=== PATIENT | male | born 1970 | race Caucasian/White ===

== ENCOUNTER 2018-08-19 10:26 | Emergency (ER) | payer BC, SELFPAY ==
[2018-08-19 10:26] VITALS: PULSE 94; RESP 16; TEMP 36.3; O2SAT 98; BMI 33.3
[2018-08-19 10:36] VITALS: BP 204/123
--- NOTE | 2018-08-19 10:36 | CT_ITS ---
STUDY: CT ABDOMEN AND PELVIS WITHOUT CONTRAST REASON FOR EXAM: Male, 48 years old. Right flank pain RADIATION DOSAGE (If Supplied By Facility): CTDIvol = ( 21.57 ) mGy, DLP = ( 1131.52 ) mGycm TECHNIQUE: Transaxial images were obtained from the dome of the diaphragm to the symphysis pubis without oral contrast, and without intravenous contrast. Sagittal and coronal images were reconstructed. Individualized dose optimization techniques were used for this CT. COMPARISON: None. FINDINGS: The lung bases are clear. The liver is normal. No dilated intrahepatic biliary radicles. The gallbladder is normal with no calcifications within it. There is no pericholecystic fluid collection or streakiness The spleen is normal. The pancreas is normal. Both adrenals are normal. There is a 2.8 mm obstructing calculus in the right ureterovesical junction with subsequent mild right-sided hydroureteronephrosis. The left kidney is normal The stomach is normal. There is no bowel distention, acute appendicitis or diverticulitis. No constricting lesions are seen in large bowel. Previous appendectomy The abdominal wall is intact with no hernias. There is no ascites or any free intraperitoneal air. No indication of epiploic appendagitis The vascular structures in the retroperitoneum are normal. There is no retrocrural, retroperitoneal or mesenteric adenopathy. The bones and joints are normal. The urinary bladder is normal. The prostate is normal--. There is no inguinal or pelvic adenopathy. There is no inguinal hernia. . . CT/Abdomen/Pelvis without Cont IMPRESSION: A right-sided hydroureteronephrosis secondary to an obstructing 2.8 mm calculus in the right ureterovesical junction. Electronically Signed: Jake Cheatham MD at 12:18 EDT Tel , Service support ,
--- NOTE | 2018-08-19 10:38 | ED.VISSUMM ---
- ER Visit Summary Date of Service: 08/19/18 Chief Complaint: [Right flank pain] History of Present Illness: The patient is a 48 M [presents the emergency department with right-sided flank pain that started about an hour and a half ago. Patient states that initially started with some burning with urination this morning and thought he might be getting a urinary tract infection. He subsequently developed right-sided flank pain. Patient states that he is passed a kidney stone before and it feels like he may be try to pass another kidney stone. He has had diaphoresis. He denies any nausea or vomiting. He denies any fevers. Patient went to urgent care and was referred to the emergency department.] Physical Examination: [HEENT-PERRLA, EOMI. Cranial nerves II through XII grossly intact. TMs clear. Mucous membranes moist. No adenopathy. Cardiovascular-regular rate and rhythm without murmur or ectopy Lungs-clear to auscultation, chest wall stable without crepitus or subcu emphysema Abdomen-normoactive bowel sounds, soft, nontender, no rebound or rigidity, no peritoneal signs. Patient does have CVA tenderness on the right. Extremities-intact ?4, normal range of motion, normal pulses, atraumatic] Test Results: [CBC with liver pain was normal. Chemistries were unremarkable. Urinalysis showed 0-[address] flank my interpretation shows a 2 mm stone at the right UVJ with mild hydroureter and hydronephrosis. Official report from radiology pending.] Emergency Department Course and Treatment: [Patient was medicated with Toradol as well as morphine and Zofran and had almost complete resolution of his pain.] Treatment Plan: [He will be given urine strainers and a prescription for Naprosyn and [place] for pain. Patient will be given referral to urology for follow-up] Disposition: [Discharged home in stable condition] Impression: [Right-sided kidney stone with colic] This note was generated with aiHit dictation software. It may contain incorrect words, spelling, and punctuation that were not noted in review of the chart prior to signing ED Disposition - Plan for ED Patient: Referrals: Alvarado Wolf MD [NON-STAFF] -
[2018-08-19 10:51] LABS: Absolute Lymphocyte Count 2.51 X10^3/ul (0.83-4.51); Basophil# 0.04 X10^3/uL; Basophil% 0.5 % (0-1); Eosinophil# 0.19 X10^3/uL; Eosinophils% 2.3 % (0-5); Hematocrit 45.1 % (40-54); Hemoglobin 15.4 g/dl (13.0-16.5); Lymphocyte # 2.51 X10^3/ul (4.0); Lymphocyte % 30.5 % (19-41); Mean Corp Hgb Conc 34.1 g/gl (32-36); Mean Corpuscular Hgb 29.2 pg (27.0-32.0); Mean Corpuscular Volume 85.6 fL (80-94); Monocyte# 0.52 X10^3/uL; Monocyte% 6.3 % (0-10); Neutrophil # 4.95 X10^3/uL (2.7-7.7); Neutrophil % 60.3 % (47-70); Platelet Count 256 K/mm3 (150-450); RBC Distribution Width CV 12.6 % (11.6-14.6); RBC Distribution Width SD 38.8 fl (35.1-43.9); Red Blood Count 5.27 M/mm3 (4.6-6.2); White Blood Count 8.2 K/mm3 (4.4-11.0)
[2018-08-19 10:53] LABS: POSITIVE COUNT NO; POSITIVE DIFFERENTIAL NO; POSITIVE MORPHOLOGY NO
[2018-08-19] MEDS: 0.9% Normal Saline 1,000 ML 125 ML IV (10:54)
[2018-08-19] MEDS: Morphine 4 MG/ML Syringe IV (10:55)
[2018-08-19] MEDS: Ondansetron 4 MG/2 ML Vial IV (10:55)
[2018-08-19] MEDS: Ketorolac 30 MG/ML Syringe IV (10:55)
[2018-08-19 10:56] LABS: Squamous Epithelial Cells - UA 0 SEEN /hpf (0-5); White Blood Cells 0 SEEN /hpf (0-5)
[2018-08-19 10:58] LABS: Color, Urine Yellow (Yellow); Glucose, Dipstick Normal (Normal); Ketone-Dipstick Negative (Negative); Leukocyte Esterase-Dipstick Negative /ul (Negative); Nitrite-Dipstick Negative (Negative); Occult Blood-Urine 25 /ul (Negative); Protein-Dipstick 15 mg/dl (Negative); Urine Bilirubin Dipstick Negative (Negative); Urine Clarity Sl. Cloudy (Clear); Urine Urobilinogen Normal (Normal)
[2018-08-19 11:06] LABS: Anion Gap 8 (5-15); BUN 19 mg/dL (7-18); BUN/Creat Ratio 16.1 RATIO (10-20); Calcium,Total 9.3 mg/dL (8.5-10.1); Chloride 108 mmol/L (98-107); Creatinine, Serum 1.18 mg/dL (0.70-1.30); EST Glomerular Filtration Rate 70 mL/min (>60); Est Glom Filt Rate - Afr Amer 85 mL/min (>60); Estimated Creatinine Clearance 89.01 ml/min; Glucose 121 mg/dL (74-106); Potassium 3.8 mmol/L (3.5-5.1); Sodium Level 141 mmol/L (136-145)
[2018-08-19 11:07] LABS: Red Blood Cells-Urine 0-5 SEEN /hpf (0-5)
[2018-08-19 11:08] LABS: Bacteria RARE /hpf (None Seen); Mucous, Urine RARE /hpf (<or=2+)
--- NOTE | 2018-08-19 12:10 | ED.DEP ---
ED Disposition - Plan for ED Patient: Instructions: ED Stone Renal W Colic Prescriptions: Hydrocodone Bitart/Apap 5-325 [[place] 5MG-325MG] 1 tab PO Q4H PRN PRN 2 Days #10 tab PRN Reason: Pain Naproxen [Naprosyn] 500 mg PO BID PRN #20 tab Referrals: Alvarado Wolf MD [NON-STAFF] - Vinnie Gross MD [STAFF PHYSICIAN] - 5-7 Days
[2018-08-19 12:33] VITALS: BP 147/84; PULSE 74; RESP 16; O2SAT 98
== END 2018-08-19 12:34 | disposition home or self-care (01) ==
LOC: ED 10:54
PROVIDERS: Emergency Provider Emergency Medicine
DX: N13.2 Hydronephrosis with renal and ureteral calculous obstruction (principal); I10 Essential (primary) hypertension; Z72.0 Tobacco use; Z87.442 Personal history of urinary calculi
CPT/HCPCS: 74176; 80048; 81001; 85025; 96361; 96374; 96375; 99283; J7030; J2405

== ENCOUNTER 2019-08-07 04:55 | Emergency (ER) | payer BC, SELFPAY ==
[2019-08-07 04:57] VITALS: BP 169/133; PULSE 87; RESP 14; TEMP 36.4; O2SAT 96; BMI 35.5
--- NOTE | 2019-08-07 05:11 | EKG12_ITS ---
Test Reason : HEADACHE Blood Pressure : / mmHG Vent. Rate : 079 BPM Atrial Rate : 079 BPM P-R Int : 124 ms QRS Dur : 092 ms QT Int : 394 ms P-R-T Axes : 014 014 027 degrees QTc Int : 451 ms Normal sinus rhythm Normal ECG Confirmed by GROVER CURRAN MD ([id number]), editor index ANNA CASAS ([id number]) on 08/08/2019 3:40:35 PM Referred By: CD Confirmed By:GROVER CURRAN MD
--- NOTE | 2019-08-07 05:13 | CT_ITS ---
STUDY: CT BRAIN WITHOUT CONTRAST REASON FOR EXAM: Male, 49 years old patient with headache and uncontrolled hypertension. RADIATION DOSAGE (If Supplied By Facility): CTDIvol = ( 44.99 ) mGy, DLP = ( 812.98 ) mGycm TECHNIQUE: Transaxial CT imaging of the brain was performed without administration of intravenous contrast material. Multiplanar reformations are submitted for interpretation. Individualized dose optimization techniques were used for this CT. COMPARISON: No relevant priors. FINDINGS: Normal soft tissue structures. Normal calvarium. Normal size ventricles and extra-axial spaces for the patient''s age. Normal white matter tracts of the cerebral hemispheres. Normal basal ganglia and thalami. Normal brainstem. Normal cerebellum. There is no intracranial hemorrhage. There are no findings of an acute ischemic infarction. Normal visualized paranasal sinuses. CT/Brain/Head without Contrast IMPRESSION: No CT evidence of acute intracranial hemorrhage. Electronically Signed: Meli Chris MD at 6:07 EDT , Service support ,
--- NOTE | 2019-08-07 05:15 | ED.VIS.GEN ---
History of Present Illness Chief Complaint: Headache Narrative: 49-year-old male with a history of hypertension diagnosed 5 years ago presents with headache for 2 days. It was present on awakening 2 days ago. Gradual onset. Not sudden or severe onset thunderclap type headache. He describes it as a pressure sensation in the frontal region. He is also nauseated but not vomiting. No chest pain or shortness of breath. No exertional component. No visual changes. He states that he stopped taking his high blood pressure medication 3 years ago when he was going through a divorce as he was distracted by the custody holley. He has not been on medication for at least 3 to 4 years. He has not had any symptoms and has not checked his blood pressure until a few days ago when he began having symptoms. He believes his headache is secondary to his elevated blood pressure. Current severity is mild. Past Medical History - Allergies and Home Meds Allergies/Adverse Reactions: Allergies No Known Allergies Allergy (Verified 08/07/19 04:56) Primary Care Physician: Care Physician,No Primary [Primary Care Provider] - Prior records reviewed: Yes Past Medical History: - - HTN Smoking Status: Current some day smoker - Family History Maternal Family History: Reports: No pertinent history Review of Systems General: Denies: Chills, Fever, Sweats Eyes: Denies: Visual changes - bilaterally, Diplopia ENT: Denies: Rhinorrhea, Sore throat Cardiovascular: Denies: Chest pain, Palpitations Respiratory: Denies: Dyspnea, Cough, Dyspnea on exertion Gastrointestinal: Denies: Abdominal pain, Nausea, Vomiting, Diarrhea, Melena, Hematochezia Genitourinary: Denies: Dysuria, Hematuria, Frequency Musculoskeletal: Denies: Back pain, Extremity Pain Skin: Denies: Rash, Wounds Neurological: Reports: Headache. Denies: Weakness, Numbness Physical Exam Vital Signs/Narrative: Vital Signs Temp Pulse Resp BP Pulse Ox 08/07/19 04:57 97.5 F L 87 14 169/133 H 96 General: Well nourished, Well developed, No Acute Distress Head: Normocephalic, Atraumatic Eyes: Perrl, EOMI ENT: Moist mucous membranes, No rhinorrhea Neck: Supple, Nontender Cardiovascular: Regular rate, Regular rhythm, No murmurs Respiratory: No distress, CTA bilaterally, Chest nontender Abdomen: Soft, Nontender, Nondistended, Normal bowel sounds Back: Nontender, Normal Inspection Extremities: Nontender, No edema Skin: Normal color, No rash Neurological: Alert, Oriented x3, Cranial nerves II-XII grossly intact, Normal Strength, Normal Sensation Psychological: Normal affect, Normal Mood Diagnostic/Tx/Re-eval Chest X-Ray - ED: 1 View, Read by Radiologist, No Acute Disease - Rhythm Strip Rhythm Strip: Sinus Rhythm Rate: 79 Ectopy: None - EKG Initial EKG Interpretation: Sinus Rhythm, No Acute Injury Pattern Prior: No Prior - Medical Decision Making Chest x-ray is clear. CT brain is negative. EKG is unremarkable. Troponin is negative. Creatinine is normal. There is no evidence of endorgan damage from his elevated blood pressure. He was given 1 dose of IV hydralazine and it did improve. His headache resolved. Neurologic exam remains completely normal. NIH is 0. No stroke or strokelike symptoms. He looks well. I spoke at length with him. He would like to be started back onto a blood pressure medication and follow-up closely as an outpatient with a primary care physician. I will give him a referral. I will start him on hydrochlorothiazide/lisinopril combo med. Return precautions were explained at length.. ED Disposition - Plan for ED Patient: Disposition: Home or Assisted Living Diagnosis: Poorly-controlled hypertension Instructions: ED Hypertension Established, ED High Blood Pressure Established Out of Control Prescriptions: Lisinopril/Hydrochlorothiazide [Lisinopril-Hctz 10-12.5 mg Tab] 1 each PO DAILY 30 Days #30 tablet Referrals: Sen Garcia MD [STAFF PHYSICIAN] - As soon as possible
[2019-08-07 05:18] LABS: Absolute Lymphocyte Count 2.87 X10^3/uL (0.83-4.51); Absolute Neutrophil Count 6.7 X10^3/uL (2.0-7.7); Basophil# 0.08 X10^3/uL; Basophil% 0.7 % (0-1); Eosinophil# 0.37 X10^3/uL; Eosinophils% 3.4 % (0-5); Hematocrit 47.7 % (40-54); Hemoglobin 15.7 g/dL (13.0-16.5); Lymphocyte # 2.87 X10^3/ul (4.0); Lymphocyte % 26.7 % (19-41); Mean Corp Hgb Conc 32.9 g/dL (32-36); Mean Corpuscular Hgb 28.8 pg (27.0-32.0); Mean Corpuscular Volume 87.5 fL (80-94); Mean Platelet Vol. 9.2 fl (6.2-12.0); Monocyte# 0.65 X10^3/uL; Monocyte% 6.1 % (0-10); NRBC Flagged by Analyzer 0 % (0-5); Neutrophil # 6.73 X10^3/uL (2.7-7.7); Neutrophil % 62.8 % (47-70); Platelet Count 271 K/mm3 (150-450); RBC Distribution Width CV 12.7 % (11.6-14.6); RBC Distribution Width SD 40.3 fl (35.1-43.9); Red Blood Count 5.45 M/mm3 (4.6-6.2); White Blood Count 10.7 K/mm3 (4.4-11.0)
[2019-08-07 05:33] LABS: Anion Gap 7 (5-15); BUN 15 mg/dL (7-18); BUN/Creat Ratio 14.2 RATIO (10-20); Calcium,Total 9.6 mg/dL (8.5-10.1); Chloride 106 mmol/L (98-107); Creatinine, Serum 1.06 mg/dL (0.70-1.30); EST Glomerular Filtration Rate 79 mL/min (>60); Est Glom Filt Rate - Afr Amer 96 mL/min (>60); Estimated Creatinine Clearance 100.75 ml/min; Glucose 122 mg/dL (74-106); Potassium 3.8 mmol/L (3.5-5.1); Sodium Level 139 mmol/L (136-145)
--- NOTE | 2019-08-07 05:35 | RAD_ITS ---
STUDY: X-RAY CHEST REASON FOR EXAM: Male, 49 years old patient with chest pain. TECHNIQUE: Single AP portable view of the chest. COMPARISON: October 31, 2014. FINDINGS: Cardiac monitoring leads are present. The lungs are hyperexpanded. There is no demonstrated pleural abnormality. There is borderline cardiomegaly. Normal mediastinum and luciano. There is prominence of the pulmonary hilar arteries without peripheral pulmonary vascular congestion, suggesting pulmonary hypertension. There is atherosclerotic tortuosity of the aortic arch and descending thoracic aorta. There are diffuse degenerative changes of the visualized thoracic spine. Normal visualized ribs, clavicles, and shoulders. There is no demonstrated abnormality of the visualized soft tissue structures of the upper abdomen. RAD/Chest 1 View (Portable) IMPRESSION: No radiographic evidence of acute cardiopulmonary disease. Electronically Signed: Meli Chris MD at 6:09 EDT , Service support ,
[2019-08-07] MEDS: hydrALAZINE 20 MG/ML Vial 10 MG IV (06:15)
[2019-08-07 07:23] VITALS: BP 199/103; PULSE 78; RESP 18; O2SAT 98
== END 2019-08-07 07:28 | disposition home or self-care (01) ==
PROVIDERS: Emergency Provider Emergency Medicine
DX: I10 Essential (primary) hypertension (principal)
CPT/HCPCS: 70450; 71045; 80048; 84484; 85025; 93005; 96374; 99284

== ENCOUNTER 2021-08-15 07:48 | Emergency (ER) | payer BC, SELFPAY ==
[2021-08-15] VITALS (12 sets, daily range): BP systolic 108–228; BP diastolic 70–154; PULSE 108–160; RESP 12–24; TEMP 37.4–38.6; O2SAT 93–100; BMI 36.8
[2021-08-15] MEDS: Succinylcholine Chloride 200 MG/10 ML Vial 100 MG IV (07:54)
[2021-08-15] MEDS: Etomidate 20 MG/10 ML Vial IV (07:54)
--- NOTE | 2021-08-15 08:00 | EKG12_ITS ---
Test Reason : UNRESPONSIVE Blood Pressure : / mmHG Vent. Rate : 166 BPM Atrial Rate : 187 BPM P-R Int : 000 ms QRS Dur : 098 ms QT Int : 290 ms P-R-T Axes : 000 000 -59 degrees QTc Int : 481 ms Atrial fibrillation Marked ST abnormality, possible inferior subendocardial injury Abnormal ECG Confirmed by MAGDY JACOBS, GROVER ([id number]), movie editor DEMETRIUS HOOD ([id number]) on 08/19/2021 1:04:44 PM Referred By: SHABNAM Confirmed By:GROVER CURRAN MD
--- NOTE | 2021-08-15 08:00 | RAD_ITS ---
STUDY: X-RAY CHEST REASON FOR EXAM: Male, 51 years old. intubation TECHNIQUE: AP COMPARISON: 08/07/2019 FINDINGS: Endotracheal tube present with tip terminating 3.5 cm above the morgan. Esophagogastric tube extends to the left upper abdomen/stomach. EKG leads project over the chest. Lungs are underexpanded with perihilar and lower lobe atelectasis. Patient is rotated. There is no demonstrated pleural abnormality. Stable size heart. Normal mediastinum and luciano. Normal visualized pulmonary arteries. Normal visualized aortic arch and descending thoracic aorta. No acute bony process. There is no demonstrated abnormality of the visualized soft tissue structures of the upper abdomen. RAD/Chest 1 View (Portable) IMPRESSION: Endotracheal and esophagogastric tubes, as above. Hypoinflation with patchy atelectasis. Electronically Signed: Fredo Wilks MD ([place]) at 8:27 EDT ,
--- NOTE | 2021-08-15 08:00 | CT_ITS ---
STUDY: CT BRAIN WITHOUT CONTRAST REASON FOR EXAM: Male, 51 years old. pt was heard to have fallen around 0700. ems arrived 0715. pt is unresponsive, being bagged. narcan given in and iv for total of 4mg RADIATION DOSAGE (If Supplied By Facility): CTDIvol = ( 44.99 ) mGy, DLP = ( 883.29 ) mGycm TECHNIQUE: Transaxial CT imaging of the brain was performed without administration of intravenous contrast material. Individualized dose optimization techniques were used for this CT. COMPARISON: Head CT dated AUGUST 07, 2019 FINDINGS: A large right thalamic intraparenchymal focus of hemorrhage is present which has diffused into the adjacent lateral, third, fourth ventricles causing moderate to severe hydrocephalus most pronounced in the lateral ventricles. Intraparenchymal hemorrhage of the midbrain also noted. Small amounts of hemorrhage are also present in the subarachnoid spaces of the bilateral cerebral hemispheres. Uncal and transtentorial herniation is present. There is also mild to moderate vasogenic edema adjacent to the right thalamic and intraventricular hemorrhage. Leftward midline shift of 5 mm. There is mild cerebral atrophy with widening of the extra-axial spaces and ventricular dilatation. There are areas of decreased attenuation within the white matter tracts of the supratentorial brain, consistent with microvascular disease changes. Normal cerebellum. Normal soft tissue structures. Normal calvarium. Normal visualized paranasal sinuses. CT/Brain/Head without Contrast IMPRESSION: 1. A large right thalamic intraparenchymal focus of hemorrhage is present which has diffused into the adjacent lateral, third, fourth ventricles causing moderate to severe hydrocephalus most pronounced in the lateral ventricles. 2. Intraparenchymal hemorrhage of the midbrain also noted. 3. Small amounts of hemorrhage are also present in the subarachnoid spaces of the bilateral cerebral hemispheres. 4. Uncal and transtentorial herniation is present. There is also mild to moderate vasogenic edema adjacent to the right thalamic and intraventricular hemorrhage. 5. Leftward midline shift of 5 mm. N.B. : The above Results were Read Back by Valerio Medina MD to Avila Mccarthy MD , , and understanding confirmed on 08/15/2021 08:49:22 (ET). Electronically Signed: Valerio Medina MD at 8:50 EDT ,
[2021-08-15] MEDS: dilTIAZem 25 MG/5 ML Vial 20 MG IV BOLUS (08:05)
[2021-08-15] MEDS: Propofol 200 MG/20 ML Vial IV BOLUS (08:06)
--- NOTE | 2021-08-15 08:12 | EDS_ITS ---
HPI History of Present Illness Chief Complaint: Unresponsive Informant: EMS Narrative Narrative: 51-year-old male presents to the emergency department unresponsive. 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 Entry was made with D[facility]'s department the patient was found unresponsive on the floor in his bedroom. They states that there was some vomit. EMS notes A. fib with RVR hypotension. They note that he has a oral airway in place. They have not seen any seizure activity. He was last seen in our emergency department about 2 years ago with hypertension. PFSH PFSH Medical History unable to obtain unable to obtain Home Medications lisinopril-hydrochlorothiazide 1 ea PO DAILY 30 Days #30 tab 08/07/19 [Rx Last Taken Unknown] Allergy/AdvReac Type Severity Reaction Status Date / Time No Known Allergies Allergy Verified 08/07/19 04:56 Family History unable to obtain Surgical History unable to obtain unable to obtain Social History Smoking Status: Current some day smoker tobacco type: cigarettes ROS ROS ED Review of Systems ROS Unobtainable: due to endotracheal tube EXAM Physical Exam Const Vital Signs: 08/15/21 07:49 08/15/21 07:52 08/15/21 07:53 Temperature 99.4 F H 99.4 F H Temperature Source Temporal Temporal Pulse Rate 160 H 160 H Respiratory Rate 23 H 24 H Respiratory Depth Deep Respiratory Pattern Gasping Blood Pressure 183/119 H 228/154 H Blood Pressure Mean 140 178 Blood Pressure Source Blood Pressure Position Blood Pressure Location Pulse Ox 99 96 Oxygen Delivery Method Ambu-Bag Ambu-Bag Fraction of Inspired Oxygen (FIO2) 08/15/21 08:19 08/15/21 08:35 08/15/21 08:39 Temperature 101.5 F H 101.4 F H Temperature Source Core Core Pulse Rate 134 H 143 H 155 H Respiratory Rate 20 H 19 H 16 Respiratory Depth Respiratory Pattern Blood Pressure 149/98 H 120/79 Blood Pressure Mean 115 92 Blood Pressure Source Monitor Blood Pressure Position Supine Blood Pressure Location Right Arm Pulse Ox 93 97 96 Oxygen Delivery Method Ambu-Bag Mechanical Ventilator Fraction of Inspired Oxygen (FIO2) 100 100 08/15/21 08:50 08/15/21 08:56 08/15/21 09:02 Temperature 101.2 F H 101.1 F H Temperature Source Core Core Pulse Rate 108 H 115 H Respiratory Rate 19 H 20 H Respiratory Depth Respiratory Pattern Blood Pressure 108/72 114/75 Blood Pressure Mean 84 88 Blood Pressure Source Monitor Blood Pressure Position Supine Blood Pressure Location Right Arm Pulse Ox 99 99 Oxygen Delivery Method Mechanical Ventilator Mechanical Ventilator Mechanical Ventilator Fraction of Inspired Oxygen (FIO2) 100 100 08/15/21 09:06 08/15/21 09:13 08/15/21 09:16 Temperature 100.7 F H 100.5 F H Temperature Source Core Core Pulse Rate 112 H 118 H 119 H Respiratory Rate 20 H 20 H 20 H Respiratory Depth Respiratory Pattern Blood Pressure 110/71 111/70 Blood Pressure Mean 84 83 Blood Pressure Source Blood Pressure Position Blood Pressure Location Pulse Ox 100 99 100 Oxygen Delivery Method Mechanical Ventilator Mechanical Ventilator Fraction of Inspired Oxygen (FIO2) 100 100 100 Positive well nourished, well developed and obese General Appearance ED: well developed Nutritional Appearance: obese HEENT Reports normocephalic, head/scalp atraumatic and moist mucous membranes HEENT Narrative: Left parietal demonstrates abrasion and hematoma Eyes PERRL and EOMs intact bilaterally Neck no lymphadenopathy, supple and no JVD Chest Wall palpation of chest normal Chest Narrative: There is a purple area of ecchymosis in the left upper chest Resp Resp Narrative: Patient has snoring respirations Cardio no murmurs Rate: tachycardic Rhythm: abnormal rhythm irregularly irregular GI normal to inspection, nondistended, normoactive bowel sounds and non-tender Palpation: soft Back/Spine no CVA tenderness and normal ROM Extremity normal to inspection General Extremety ED: Negative for edema General Extremity: Negative for edema Neuro Neuro Narrative: Patient is unresponsive. No corneal reflex. No response to pain. Skin no rashes or lesions noted and no wounds Skin Narrative: There is slight mottling of the lateral abdominal wall skin MDM MDM MDM Narrative Medical decision making narrative: Patient underwent RSI using etomidate and succinylcholine. A 7.5 endotracheal tube was passed on the first attempt without any difficulty. Lung auscultation capnography and chest x-ray confirmed placement. My interpretation of the chest x-ray is adequate placement of endotracheal tube and orogastric tube. Patient was given 20 mg of Cardizem to help slow his rate. He was then placed on a Cardizem drip. Unfortunately his blood pressure started to decrease. Given the significant intracranial hemorrhage and after discussion with neurosurgery at [facility] they requested we give the patient mannitol. The blood patient's blood pressure currently approximately 100/70 with heart rate of 156. I made the decision to defibrillate to see if we could get him into a sinus rhythm so that we did not have to have Cardizem on board and to possibly improve his cardiac performance. Patient received a single synchronized shock at 200 J which resulted in return to a normal sinus rhythm and blood pressure improved. Patient was placed in c-collar. Due to inclement weather ceiling the helicopter was not able to land at our institution. We called multiple ambulance services to be able to take him from this hospital to the airport to meet the helicopter. The patient's brother called the emergency department and I updated him. Lab Data Attestation: I reviewed the patient's lab results. Labs: Laboratory Results - last 24 hr 08/15/21 08/15/21 08/15/21 08:16 08:16 08:16 WBC 27.4 H RBC 5.20 Hgb 14.9 Hct 46.7 MCV 89.8 MCH 28.7 MCHC 31.9 L RDW Std Deviation 43.7 RDW Coeff of Francisco Javier 13.2 Plt Count 435 MPV 9.7 Immature Gran % (Auto) 0.800 Neut % (Auto) 79.5 H Lymph % (Auto) 12.2 L Sevier % (Auto) 7.2 Eos % (Auto) 0.1 Baso % (Auto) 0.2 Absolute Neuts (auto) 21.8 H Absolute Lymphs (auto) 3.35 Nucleated RBC % 0 PT 14.6 INR 1.2 APTT 25.3 Sodium 140 Potassium 3.5 Chloride 106 Carbon Dioxide 23.0 Anion Gap 11 BUN 13 Creatinine 1.50 H Estim Creat Clear Calc 67.74 Est GFR (MDRD) Af Amer 63 Est GFR (MDRD) Non-Af 52 L BUN/Creatinine Ratio 8.7 L Glucose 303 H Lactic Acid Calcium 8.4 L Magnesium 2.1 Total Bilirubin 0.20 AST 26 ALT 35 Alkaline Phosphatase 98 Troponin I High Sens 56 B-Natriuretic Peptide Total Protein 7.5 Albumin 3.7 Globulin 3.8 Albumin/Globulin Ratio 1.0 Lipase 62 L TSH 2.29 Urine Color Urine Clarity Urine pH Ur Specific Sanders Urine Protein Urine Glucose (UA) Urine Ketones Urine Occult Blood Urine Nitrite Urine Bilirubin Urine Urobilinogen Ur Leukocyte Esterase Urine RBC Urine WBC Ur Squamous Epith Cells Urine Bacteria Urine Mucus Urine Opiates Screen Urine Methadone Screen Ur Barbiturates Screen Ur Phencyclidine Scrn Ur Amphetamines Screen MDMA (Ecstasy) Screen U Benzodiazepines Scrn Urine Cocaine Screen U Cannabinoids Screen Ur Drug Screen Comment Ethyl Alcohol 08/15/21 08/15/21 08/15/21 08:16 08:16 08:16 WBC RBC Hgb Hct MCV MCH MCHC RDW Std Deviation RDW Coeff of Francisco Javier Plt Count MPV Immature Gran % (Auto) Neut % (Auto) Lymph % (Auto) Sevier % (Auto) Eos % (Auto) Baso % (Auto) Absolute Neuts (auto) Absolute Lymphs (auto) Nucleated RBC % PT INR APTT Sodium Potassium Chloride Carbon Dioxide Anion Gap BUN Creatinine Estim Creat Clear Calc Est GFR (MDRD) Af Amer Est GFR (MDRD) Non-Af BUN/Creatinine Ratio Glucose Lactic Acid 8.3 H* Calcium Magnesium Total Bilirubin AST ALT Alkaline Phosphatase Troponin I High Sens B-Natriuretic Peptide 289.2 H Total Protein Albumin Globulin Albumin/Globulin Ratio Lipase TSH Urine Color Urine Clarity Urine pH Ur Specific Sanders Urine Protein Urine Glucose (UA) Urine Ketones Urine Occult Blood Urine Nitrite Urine Bilirubin Urine Urobilinogen Ur Leukocyte Esterase Urine RBC Urine WBC Ur Squamous Epith Cells Urine Bacteria Urine Mucus Urine Opiates Screen Urine Methadone Screen Ur Barbiturates Screen Ur Phencyclidine Scrn Ur Amphetamines Screen MDMA (Ecstasy) Screen U Benzodiazepines Scrn Urine Cocaine Screen U Cannabinoids Screen Ur Drug Screen Comment Ethyl Alcohol < 3.0 08/15/21 08/15/21 08:16 08:16 WBC RBC Hgb Hct MCV MCH MCHC RDW Std Deviation RDW Coeff of Francisco Javier Plt Count MPV Immature Gran % (Auto) Neut % (Auto) Lymph % (Auto) Sevier % (Auto) Eos % (Auto) Baso % (Auto) Absolute Neuts (auto) Absolute Lymphs (auto) Nucleated RBC % PT INR APTT Sodium Potassium Chloride Carbon Dioxide Anion Gap BUN Creatinine Estim Creat Clear Calc Est GFR (MDRD) Af Amer Est GFR (MDRD) Non-Af BUN/Creatinine Ratio Glucose Lactic Acid Calcium Magnesium Total Bilirubin AST ALT Alkaline Phosphatase Troponin I High Sens B-Natriuretic Peptide Total Protein Albumin Globulin Albumin/Globulin Ratio Lipase TSH Urine Color Straw Urine Clarity Clear Urine pH 6.5 Ur Specific Sanders 1.015 Urine Protein 100 H Urine Glucose (UA) 250 H Urine Ketones 15 H Urine Occult Blood 150 H Urine Nitrite Negative Urine Bilirubin Negative Urine Urobilinogen Normal Ur Leukocyte Esterase Negative Urine RBC 0 SEEN Urine WBC 0 SEEN Ur Squamous Epith Cells 0 SEEN Urine Bacteria 0 SEEN Urine Mucus 0 SEEN Urine Opiates Screen NEGATIVE Urine Methadone Screen NEGATIVE Ur Barbiturates Screen NEGATIVE Ur Phencyclidine Scrn NEGATIVE Ur Amphetamines Screen NEGATIVE MDMA (Ecstasy) Screen NEGATIVE U Benzodiazepines Scrn NEGATIVE Urine Cocaine Screen NEGATIVE U Cannabinoids Screen NEGATIVE Ur Drug Screen Comment Ethyl Alcohol ABG Data ABG results: ABG 08/15/21 08:26 Specimen Type ART Sample Site L Radial pH 6.96 L* Bicarbonate Actual 23.2 Total CO2 26 Base Excess -9 L O2 Saturation 92 L O2 % 100 ABG pCO2 103.4 H* ABG pO2 103 H Boaz Test Positive Respiration Rate 12 O2 Delivery Device Adult Vent Vent Mode AC Tidal Volume 450 POC PEEP 5 Crit Call To/Read Back Yes Blood Gas Notified Whom [place] Diagnostic Testing: Clinical Impression(s) from Imaging Studies Brain CT 08/15/21 08:00 IMPRESSION: 1. A large right thalamic intraparenchymal focus of hemorrhage is present which has diffused into the adjacent lateral, third, fourth ventricles causing moderate to severe hydrocephalus most pronounced in the lateral ventricles. 2. Intraparenchymal hemorrhage of the midbrain also noted. 3. Small amounts of hemorrhage are also present in the subarachnoid spaces of the bilateral cerebral hemispheres. 4. Uncal and transtentorial herniation is present. There is also mild to moderate vasogenic edema adjacent to the right thalamic and intraventricular hemorrhage. 5. Leftward midline shift of 5 mm. N.B. : The above Results were Read Back by Valerio Medina MD to Avila Mccarthy MD , , and understanding confirmed on 08/15/2021 08:49:22 (ET). Electronically Signed: Valerio Medina MD at 8:50 EDT , ADDENDUM: 08/15/21 0857 IMPRESSION: 1. A large right thalamic intraparenchymal focus of hemorrhage is present which has diffused into the adjacent lateral, third, fourth ventricles causing moderate to severe hydrocephalus most pronounced in the lateral ventricles. 2. Intraparenchymal hemorrhage of the midbrain also noted. 3. Small amounts of hemorrhage are also present in the subarachnoid spaces of the bilateral cerebral hemispheres. 4. Uncal and transtentorial herniation is present. There is also mild to moderate vasogenic edema adjacent to the right thalamic and intraventricular hemorrhage. 5. Leftward midline shift of 5 mm. N.B. : The above Results were Read Back by Valerio Medina MD to Avila Mccarthy MD, MD, and understanding confirmed on 08/15/2021 08:49:22 (ET). Electronically Signed: Valerio Medina MD at 8:50 EDT , Chest X-Ray 08/15/21 08:00 IMPRESSION: Endotracheal and esophagogastric tubes, as above. Hypoinflation with patchy atelectasis. Electronically Signed: Fredo Wilks MD ([place]) at 8:27 EDT , EKG Initial EKG: Attestation: I personally reviewed and interpreted this EKG as follows: Comments: Atrial fibrillation with rapid ventricular response. Noted ST depression most likely rate dependent. 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, Discussing w/Consultants, Arranging Admission or Transfer and Performing Direct Patient Care at Bedside Discharge Plan Triage Chief Complaint: Unresponsive ED Provider: Avila Mccarthy Dx/Rx/DC Orders Clinical Impression: Intracranial hemorrhage, Atrial fibrillation with rapid ventricular response, Acute febrile illness, Acute respiratory failure, Acute respiratory acidosis Prescriptions: No Action lisinopril-hydrochlorothiazide 1 EACH tablet 1 ea PO DAILY 30 Days Qty: 30 RF: 1 Primary Care Provider: Care Physician,No Primary Referrals: Care Physician,No Primary [Primary Care Provider] - Disposition Disposition: Acute Care Hospital Discharge Location: [facility]
[2021-08-15 08:25] LABS: Bacteria 0 SEEN /hpf (None Seen); Mucous, Urine 0 SEEN /hpf (<or=2+); Red Blood Cells-Urine 0 SEEN /hpf (0-5); Squamous Epithelial Cells - UA 0 SEEN /hpf (0-5); White Blood Cells 0 SEEN /hpf (0-5)
[2021-08-15 08:28] LABS: Color, Urine Straw (Yellow); Glucose, Dipstick 250 mg/dl (Normal); Ketone-Dipstick 15 mg/dl (Negative); Leukocyte Esterase-Dipstick Negative /ul (Negative); Nitrite-Dipstick Negative (Negative); Occult Blood-Urine 150 /ul (Negative); Protein-Dipstick 100 mg/dl (Negative); Specific Gravity, Urine 1.015 (1.002-1.030); Urine Bilirubin Dipstick Negative (Negative); Urine Clarity Clear (Clear); Urine Urobilinogen Normal (Normal); Urine pH 6.5 (5.0 - 8.0)
[2021-08-15 08:31] LABS: Allen Test Positive; Base Excess -9 mmol/L (-2 to +2); Bicarbonate 23.2 mmol/L (22-26); Blood Gas Specimen Type ART; FI02 100; Mode AC; O2 Delivery Device Adult Vent; PEEP 5; PO2 103 mmHG (75-100); RR 12; SITE L Radial; SO2 92 % (95-99); Total Carbon Dioxide 26 mmol/L; Vt 450; pCO2 103.4 mmHg (35-45); pH 6.96 (7.35-7.45)
[2021-08-15] MEDS: Acetaminophen 650 MG Suppository RC (08:31)
[2021-08-15 08:33] LABS: Absolute Lymphocyte Count 3.35 X10^3/uL (0.83-4.51); Absolute Neutrophil Count 21.8 X10^3/uL (2.0-7.7); Basophil# 0.05 X10^3/uL; Basophil% 0.2 % (0-1); Eosinophil# 0.02 X10^3/uL; Eosinophils% 0.1 % (0-5); Hematocrit 46.7 % (40-54); Hemoglobin 14.9 g/dL (13.0-16.5); Lymphocyte # 3.35 X10^3/ul (0.83-4.51); Lymphocyte % 12.2 % (19-41); Mean Corp Hgb Conc 31.9 g/dL (32-36); Mean Corpuscular Hgb 28.7 pg (27.0-32.0); Mean Corpuscular Volume 89.8 fL (80-94); Mean Platelet Vol. 9.7 fl (6.2-12.0); Monocyte# 1.97 X10^3/uL; Monocyte% 7.2 % (0-10); NRBC Flagged by Analyzer 0 % (0-5); Neutrophil # 21.76 X10^3/uL (2.7-7.7); Neutrophil % 79.5 % (47-70); POSITIVE DIFFERENTIAL YES; Platelet Count 435 K/mm3 (150-450); RBC Distribution Width CV 13.2 % (11.6-14.6); RBC Distribution Width SD 43.7 fl (35.1-43.9); White Blood Count 27.4 K/mm3 (4.4-11.0)
--- NOTE | 2021-08-15 08:35 | EKG12_ITS ---
Test Reason : REPEAT-RHYTHM CHANGE Blood Pressure : / mmHG Vent. Rate : 107 BPM Atrial Rate : 101 BPM P-R Int : 000 ms QRS Dur : 098 ms QT Int : 312 ms P-R-T Axes : 000 016 -39 degrees QTc Int : [address] & T wave abnormality, consider inferior ischemia Abnormal ECG Confirmed by MAGDY JACOBS, GROVER ([id number]), staff editor DEMETRIUS HOOD ([id number]) on 08/19/2021 1:05:02 PM Referred By: SHABNAM Confirmed By:GROVER CURRAN MD
[2021-08-15 08:37] LABS: Differential Indicated SCAN CRITERIA MET; International Normalized Ratio 1.2; Prothrombin Time (Protime)PT. 14.6 SECONDS (11.7-14.9)
[2021-08-15 08:38] LABS: Partial Thromboplast Time 25.3 Seconds (24.1-36.2)
[2021-08-15 08:47] LABS: Lactic Acid 8.3 mmol/L (0.4-1.9)
[2021-08-15 08:51] LABS: AST(SGOT) 26 U/L (15-37); Alanine Aminotransfer ALT/SGPT 35 U/L (16-61); Albumin, Serum 3.7 g/dL (3.2-5.0); Alkaline Phosphatase 98 U/L (45-117); Amphetamine Urine VISTA NEGATIVE (<1000 ng/mL); Anion Gap 11 (5-15); BUN 13 mg/dL (7-18); BUN/Creat Ratio 8.7 RATIO (10-20); Barbiturate Urine VISTA NEGATIVE (< 200 ng/mL); Benzodiazepine Urine VISTA NEGATIVE (< 200 ng/mL); Calcium,Total 8.4 mg/dL (8.5-10.1); Chloride 106 mmol/L (98-107); Cocaine Urine VISTA NEGATIVE (< 300 ng/mL); EST Glomerular Filtration Rate 52 mL/min (>60); Ecstacy Urine VISTA NEGATIVE (< 500 ng/mL); Est Glom Filt Rate - Afr Amer 63 mL/min (>60); Estimated Creatinine Clearance 67.74 ml/min; Globulin 3.8 g/dL (2.2-4.2); Glucose 303 mg/dL (74-106); Lipase 62 U/L (73-393); Magnesium 2.1 mg/dL (1.6-2.6); Methadone Urine VISTA NEGATIVE (< 300 ng/mL); PCP Urine VISTA NEGATIVE (< 25 ng/mL); Potassium 3.5 mmol/L (3.5-5.1); Protein, Total 7.5 g/dL (6.4-8.2); Sodium Level 140 mmol/L (136-145); THC Urine VISTA NEGATIVE (< 50 ng/mL); Thyroid Stim Hormone (TSH) 2.29 uIU/mL (0.358-3.74); Troponin-I HS 56 pg/mL (3.0-78.0); Vista UDS pH Range 6
[2021-08-15 08:53] LABS: Alcohol, Blood (Medical)-Serum < 3.0 mg/dL
[2021-08-15 08:56] LABS: BNP,B-Type NATRIURETIC PEPTIDE 289.2 pg/mL (0-100)
[2021-08-15] MEDS: Mannitol 50gm/250ml 250 ML IV (08:58)
--- NOTE | 2021-08-15 09:07 | ED.RN ---
THIS RN SPOKE WITH [facility]. REPORT WAS GIVEN TO STAFF. THEY STATE NO FURTHER REPORT NEEDED AND TO CONTACT THEM AT [phone] WHEN [employer] WITH PATIENT.
[2021-08-15 09:18] LABS: Platelet Estimate ADEQUATE (ADEQ); Red Cell Morphology NORM C+C NORMAL (NORM C&C)
[2021-08-15 11:30] LABS: Pathologist Review Reviewed
[2021-08-15 12:23] LABS: Reflex Lactate? Y
--- NOTE | 2021-08-19 10:25 | ED.RN ---
Per Dr Pablo nothing to do at this point for a blood culture with gram pos rods except to call [facility]. 1 bottle out of 4 positive.
== END 2021-08-15 10:04 | disposition short-term general hospital (02) ==
PROVIDERS: Emergency Provider Emergency Medicine; Visit Provider Emergency Medicine
DX: I48.91 Unspecified atrial fibrillation (principal); J96.00 Acute respiratory failure, unspecified whether with hypoxia or hypercapnia; I62.9 Nontraumatic intracranial hemorrhage, unspecified; F17.210 Nicotine dependence, cigarettes, uncomplicated; E87.2 Acidosis; R31.9 Hematuria, unspecified; R50.9 Fever, unspecified; I10 Essential (primary) hypertension; E66.9 Obesity, unspecified; R94.31 Abnormal electrocardiogram [ECG] [EKG]
CPT/HCPCS: 31500; 31720; 36591; 36600; 51702; 70450; 71045; 80053; 80307; 81001; 82077; 82803; 83605; 83690; 83735; 83880; 84443; 84484; 85025; 85610; 85730; 87040; 87077; 87811; 93005; 94002; 99251; 99285; J7030; A4216; G0463; J0330